=== PATIENT | female | born 1965 | race Caucasian/White ===

== ENCOUNTER 2022-04-28 00:25 | Emergency (ER) | payer OTHER ==
[~2022-04-28] VITALS: Ht 165.1 cm; Wt 72.6 kg
[2022-04-28] MEDS ORDERED: SYMBICORT 16010.2 GM IH (03:11)
[2022-04-28] MEDS ORDERED: ZYNCOF 20-400120 ML PO (03:11)
[2022-04-28] MEDS ORDERED: BUDESONIDE0.5 MG/2 M IH (03:11)
[2022-04-28] MEDS ORDERED: SINGULAIR 10MG10 MG PO (03:16)
[2022-04-28] MEDS ORDERED: PHENAGIL TABLE1 EACH PO (03:17)
== END 2022-04-28 03:30 ==
LOC: ER 00:25
DX: U07.1 COVID-19 (principal); Z88.6 Allergy status to analgesic agent